=== PATIENT | female | born 1985 | race Caucasian/White ===

== ENCOUNTER 2016-09-15 10:30 | Inpatient (IN) | payer OTHER ==
[~2016-09-15] VITALS: Ht 172.7 cm; Wt 84.5 kg
[2016-09-17 10:19] VITALS: Ht 172.7 cm; Wt 84.5 kg
[2016-09-17 10:20] VITALS: BP_SYST 118; PULSE 121; RESP 20
[2016-09-17] MEDS ORDERED: METHYLERGONOVINE 0.2 MG INJ IM PRN (10:30)
[2016-09-17] MEDS ORDERED: OXYTOCIN 30 UNITS/LR 500 ML IV SCH ×3 (10:30→18:00)
[2016-09-17] MEDS ORDERED: OXYTOCIN 30 UNITS/LR 500 ML IV PRN (10:30)
[2016-09-17] MEDS ORDERED: CARBOPROST 250 MCG INJ IM PRN (10:30)
[2016-09-17] MEDS ORDERED: MISOPROSTOL 200 MCG TAB PR PRN (10:30)
[2016-09-17] MEDS ORDERED: IBUPROFEN 600 MG TAB PO PRN (10:30)
[2016-09-17] MEDS ORDERED: BUTORPHANOL 2 MG INJ IV PRN (10:30)
[2016-09-17] MEDS ORDERED: ACETAMINOPHEN/CODEINE #3 TAB PO PRN (10:30)
[2016-09-17] MEDS ORDERED: AMPICILLIN 2 GM/NS (PMX) 100 ML IV ONE (10:30)
[2016-09-17] MEDS ORDERED: LIDOCAINE 1% (MPF) 30 ML INJ INJ PRN (10:30)
[2016-09-17] MEDS: LACTATED RINGER'S 1,000 ML IV SCH ×2 (10:56→17:53)
[2016-09-17] MEDS ORDERED: DINOPROSTONE 10 MG VAG SUPP VAG ONE (11:00)
[2016-09-17] MEDS ORDERED: LACTATED RINGER'S 1,000 ML IV PRN (12:00)
[2016-09-17 12:10] LABS: ADD SCAN DIFF NO
[2016-09-17 12:16] LABS: INR 0.87; PROTIME 11.8 Sec (12.2-14.2); PT RATIO 0.9
[2016-09-17 12:17] LABS: BASOPHILS % 0.3 % (0.0-2.0); EOSINOPHILS # 0.1 10^3/ul (0.0-0.5); EOSINOPHILS % 1.1 % (0.0-7.0); HEMOGLOBIN 13.8 g/dl (12.0-16.0); LYMPHOCYTES # 1.9 10^3/ul (0.8-2.9); LYMPHOCYTES % 18.7 % (15.0-51.0); MEAN CORPUSCULAR HEMOGLOBIN 31.4 pg (29.0-33.0); MEAN CORPUSCULAR HGB CONC 34.5 g/dl (32.0-37.0); MEAN CORPUSCULAR VOLUME 90.9 fl (82.0-101.0); MONOCYTE # 0.8 10^3/ul (0.3-0.9); MONOCYTES % 7.9 % (0.0-11.0); NEUTROPHIL # 7.3 10^3/ul (1.6-7.5); NEUTROPHILS % 71.5 % (39.0-77.0); PARTIAL THROMBOPLASTIN TIME 27.5 Sec (25.0-35.0); PLATELET COUNT 260 10^3/UL (140-415); RED CELL DISTRIBUTION WIDTH 13.6 % (11.5-14.5); WHITE BLOOD COUNT 10.2 10^3/ul (4.8-10.8)
[2016-09-17] MEDS ORDERED: FERR325C PO (13:30)
[2016-09-17] MEDS ORDERED: PRENAT PO (13:30)
[2016-09-17] MEDS ORDERED: FOLI20CA PO (13:30)
[2016-09-17] MEDS: AMPICILLIN 1 GM/NS (PMX) 50 ML IV SCH ×3 (14:30→22:08)
[2016-09-17] MEDS ORDERED: morphine 2 MG INJ IV PRN ×2 (20:00)
[2016-09-17] MEDS ORDERED: ONDANSETRON 4 MG INJ IV ONE (20:00)
[2016-09-17] MEDS ORDERED: NALOXONE (0.4 MG/ML) INJ IV PRN (20:00)
[2016-09-17] MEDS ORDERED: ONDANSETRON 4 MG INJ IV PRN (20:00)
[2016-09-17] MEDS ORDERED: DIPHENHYDRAMINE 50 MG INJ IV PRN (20:00)
[2016-09-17] MEDS ORDERED: FENTAnyl 2MCG/ML-ROPIV 0.2% 100 ML BAG EPI SCH (20:00)
[2016-09-17] MEDS ORDERED: CITRIC ACID/NA CITRATE 30 ML CUP PO ONE (20:00)
[2016-09-17] MEDS ORDERED: PROCHLORPERAZINE 10 MG INJ IV PRN (20:00)
[2016-09-17] MEDS ORDERED: KETOROLAC 30 MG INJ IV PRN (20:00)
--- NOTE | 2016-09-18 01:26 | PN ---
Date/Time of Note Date/Time of Note DATE: 09/17/2016 TIME: 11 pm OB Subjective Subjective Subjective day 1 post vaginal delivery no complaints feels good uterus contracted lochia normal OB Objective HEENT: WNL Heart: Rhythm Normal Lungs: Clear, Equal Abdomen: WNL Extremities: Normal Reflexes: Normal GIUSEPPE BRANDT MD Sep 18, 2016 01:26
[2016-09-18] MEDS ORDERED: ONDANSETRON 4 MG INJ IV PRN (01:30)
[2016-09-18] MEDS ORDERED: DIBUCAINE 1% 30 GM OINT PR PRN (01:30)
[2016-09-18] MEDS ORDERED: ACETAMINOPHEN 325 MG TAB PO PRN ×2 (01:30→02:00)
[2016-09-18] MEDS ORDERED: MAGNESIUM HYDROXIDE 30ML CUP PO PRN (01:30)
[2016-09-18] MEDS ORDERED: MISOPROSTOL 200 MCG TAB PR PRN (01:30)
[2016-09-18] MEDS ORDERED: ACETAMINOPHEN/CODEINE #3 TAB PO PRN ×2 (01:30)
[2016-09-18] MEDS ORDERED: METHYLERGONOVINE 0.2 MG INJ IM PRN (01:30)
[2016-09-18] MEDS ORDERED: ONDANSETRON 4 MG TAB PO PRN (01:30)
[2016-09-18] MEDS ORDERED: ZOLPIDEM 5 MG TAB PO PRN (01:30)
[2016-09-18] MEDS ORDERED: BENZOCAINE 20% 56 ML SPRAY TOP PRN (01:30)
[2016-09-18] MEDS ORDERED: LANOLIN 7 GM TUBE TOP PRN (01:30)
[2016-09-18] MEDS: LACTATED RINGER'S 1,000 ML IV* SCH ×3 (01:30→17:30)
[2016-09-18] MEDS ORDERED: CARBOPROST 250 MCG INJ IM PRN (01:30)
[2016-09-18] MEDS ORDERED: DIPHENHYDRAMINE 25 MG CAP PO PRN (01:30)
[2016-09-18] MEDS ORDERED: WITCH HAZEL/GLYCERIN PAD PR PRN (01:30)
[2016-09-18] MEDS ORDERED: OXYTOCIN 30 UNITS/LR 500 ML IV PRN (01:30)
--- NOTE | 2016-09-18 01:41 | LDN ---
Date/Time of Note Date/Time of Note DATE: 09/18/16 TIME: 01:38 Delivery Summary term induction of labor due to dates spontaneous vaginal delivery baby girl 9 cleft palate. Weeks of Gestation 41.5 Placenta Delivered: Spontaneously Meconium: none Episiotomy: No Perineal laceration: 1 Laceration repair: right labial laceration Anesthesia type: Epidural Sponge & Needle done & correct: Yes All needle counts correct: Yes Any foreign bodies felt in the: No Problems: Delivery Information Sex Sex: female Apgars 1 Minute: 9 5 Minute: 9 Suctioning Nose & mouth suctioned at adam: Yes Umbilical Cord Umbilical cord with: 3 Vessels Cord Blood was obtained: Yes Mother & Baby Disposition Disposition baby has cleft palate Mom & Baby to Maternity; Good: Yes GIUSEPPE BRANDT MD Sep 18, 2016 01:41
[2016-09-18 04:55] VITALS: BP 135/79; PULSE 99; RESP 18
[2016-09-18] MEDS: IBUPROFEN 800 MG TAB PO SCH ×3 (06:55→21:56)
[2016-09-18] MEDS: SENNA/DOCUSATE NA (8.6MG/50MG) TAB PO SCH ×2 (09:02→20:42)
[2016-09-18 12:00] VITALS: BP 112/59; PULSE 82; RESP 18
[2016-09-18 16:00] VITALS: BP 105/55; PULSE 68; RESP 18
[2016-09-18 20:00] VITALS: BP 128/71; PULSE 72; RESP 18
[2016-09-18 23:57] VITALS: BP 111/65; RESP 18
[2016-09-19 04:05] VITALS: BP 112/75; PULSE 81; RESP 20
[2016-09-19] MEDS: IBUPROFEN 800 MG TAB PO SCH ×3 (05:34→21:36)
[2016-09-19 07:30] LABS: ADD SCAN DIFF NO
[2016-09-19 07:39] LABS: BASOPHILS % 0.3 % (0.0-2.0); EOSINOPHILS # 0.3 10^3/ul (0.0-0.5); EOSINOPHILS % 1.9 % (0.0-7.0); HEMOGLOBIN 12.3 g/dl (12.0-16.0); LYMPHOCYTES # 3.2 10^3/ul (0.8-2.9); MEAN CORPUSCULAR HEMOGLOBIN 30.4 pg (29.0-33.0); MEAN CORPUSCULAR HGB CONC 33.2 g/dl (32.0-37.0); MEAN CORPUSCULAR VOLUME 91.6 fl (82.0-101.0); MEAN PLATELET VOLUME 9.7 fl (7.4-10.4); MONOCYTE # 1.2 10^3/ul (0.3-0.9); MONOCYTES % 8.7 % (0.0-11.0); NEUTROPHIL # 9.1 10^3/ul (1.6-7.5); NEUTROPHILS % 65.7 % (39.0-77.0); PLATELET COUNT 198 10^3/UL (140-415); RED BLOOD COUNT 4.04 10^6/ul (4.20-5.40); WHITE BLOOD COUNT 13.9 10^3/ul (4.8-10.8)
[2016-09-19 08:00] VITALS: BP 112/72; PULSE 67; RESP 16
[2016-09-19] MEDS: SENNA/DOCUSATE NA (8.6MG/50MG) TAB PO SCH ×2 (09:09→20:40)
--- NOTE | 2016-09-19 10:46 | PN ---
Date/Time of Note Date/Time of Note DATE: 09/19/16 TIME: 10:42 OB Subjective Subjective Subjective day 1 postvaginal delivery doing well, no problems, lochia normal. breast feeding well referral needs to be done for cleft palate by pediatrics had BM, voiding well. home in am OB Objective HEENT: WNL Heart: Rhythm Normal Lungs: Clear, Equal Abdomen: WNL Extremities: Normal Reflexes: Normal GIUSEPPE BRANDT MD Sep 19, 2016 10:46
--- NOTE | 2016-09-19 10:48 | PD.PPDC ---
[employer] Discharge Instruction Condition Patient Condition: Good Diet Diet: Resume Regular Diet Activity/Restrictions Activity: Normal Activity May Shower Restrictions: No Exercising No Lifting No Driving No Sexual Activity Nothing in the Vagina No Delevan No Tampons, douche Follow-up Follow-up with Physician: 6, Week/Weeks Return to clinic for [facility] Instructions: Fever greater than 101 Chills Worsening abdominal pain Excessive Vaginal Bleeding More than 2 pads per hour Unable to tolerate diet OB Instructions: Breast Tenderness Depression Blurried Vision Headache GIUSEPPE BRANDT MD Sep 19, 2016 10:48
[2016-09-19 16:23] VITALS: BP 109/68; PULSE 69; RESP 18
[2016-09-19 20:00] VITALS: BP 126/67; RESP 20
[2016-09-20 04:00] VITALS: BP 108/68; PULSE 66; RESP 20
[2016-09-20] MEDS: IBUPROFEN 800 MG TAB PO SCH (05:35)
--- NOTE | 2016-09-20 07:25 | DS ---
Date/Time of Note Date/Time of Note DATE: 09/20/16 TIME: 07:24 Obstetrical Discharge Record Final Diagnosis Final Diagnosis: Term delivered Vaginal Delivery Obstetrical Delivery: Spontaneous, Laceration, Repaired Complications Induction: Yes Condition on Discharge Physical Assessment Voiding: Yes Bowel Movement: Yes Breast: Soft, non-tender, Filling Fundus: Firm Calf Tenderness: No Patient Condition: Good GIUSEPPE BRANDT MD Sep 20, 2016 07:25
[2016-09-20 07:45] VITALS: BP 118/66; PULSE 62; RESP 18
[2016-09-20 08:07] LABS: ADD SCAN DIFF NO
[2016-09-20 08:15] LABS: BASOPHIL # 0.1 10^3/ul (0.0-0.1); BASOPHILS % 0.6 % (0.0-2.0); EOSINOPHILS # 0.3 10^3/ul (0.0-0.5); EOSINOPHILS % 2.8 % (0.0-7.0); HEMATOCRIT 34.4 % (37.0-47.0); HEMOGLOBIN 11.8 g/dl (12.0-16.0); LYMPHOCYTES # 2.6 10^3/ul (0.8-2.9); LYMPHOCYTES % 24.9 % (15.0-51.0); MEAN CORPUSCULAR HEMOGLOBIN 31.7 pg (29.0-33.0); MEAN CORPUSCULAR HGB CONC 34.3 g/dl (32.0-37.0); MEAN CORPUSCULAR VOLUME 92.5 fl (82.0-101.0); MEAN PLATELET VOLUME 9.4 fl (7.4-10.4); MONOCYTE # 0.8 10^3/ul (0.3-0.9); MONOCYTES % 7.4 % (0.0-11.0); NEUTROPHIL # 6.6 10^3/ul (1.6-7.5); NEUTROPHILS % 63.9 % (39.0-77.0); PLATELET COUNT 209 10^3/UL (140-415); RED BLOOD COUNT 3.72 10^6/ul (4.20-5.40); WHITE BLOOD COUNT 10.3 10^3/ul (4.8-10.8)
[2016-09-20] MEDS: SENNA/DOCUSATE NA (8.6MG/50MG) TAB PO SCH (08:23)
[2016-09-20] MEDS ORDERED: VARICELLA VACCINE LIVE/PF 1,350 UNIT/0.5 ML ML SC* ONE (09:00)
[2016-09-20] MEDS ORDERED: MEASLES,MUMPS,RUBELLA VACCINE INJ SC* ONE (09:00)
[2016-09-20] MEDS ORDERED: DIPHTH/TET/ACEL PERTUSS (ADULT) 0.5 ML VIAL IM* ONE (09:00)
== END 2016-09-20 11:50 | disposition home or self-care (01) | DRG 775 ==
LOC: L-D 09-17 09:22 → PP1 09-18 04:38
PROVIDERS: ADMIT Obstetrics & Gynecology; ATTEND Obstetrics & Gynecology
PROC: 10E0XZZ Delivery of Products of Conception, External Approach (ICD-10-PCS; principal; 2016-09-18)
PROC: 0HQ9XZZ Repair Perineum Skin, External Approach (ICD-10-PCS; 2016-09-18)
PROC: 3E00X4Z Introduction of Serum, Toxoid and Vaccine into Skin and Mucous Membranes, External Approach (ICD-10-PCS; 2016-09-20)
DX: O48.0 Post-term pregnancy (principal); O70.0 First degree perineal laceration during delivery; Z3A.40 40 weeks gestation of pregnancy; Z23 Encounter for immunization; Z37.0 Single live birth
CPT/HCPCS: 62319; 85025; 85610; 85730; 86592; 86850; 86885; 86900; 86901; 87340; 90715; 90716; J0290; J2405; J2590; J3010; J7120